=== PATIENT | female | born 1995 | race American Indian/Alaskan Native ===

== ENCOUNTER 2023-04-18 19:53 | Emergency (ER) | payer MEDICAID, OTHER ==
[~2023-04-18] VITALS: Ht 172.7 cm; Wt 153.0 kg
[2023-04-18 20:19] VITALS: BP 157/85; O2SAT 94
[2023-04-18] MEDS ORDERED: ONDANSETRON 4MG ODT PO ONE (21:00)
[2023-04-18 21:12] VITALS: PULSE 96; RESP 18; TEMP 99.1
== END 2023-04-18 21:13 | disposition home or self-care (01) ==
LOC: ER 20:06
DX: B34.9 Viral infection, unspecified (principal); F12.90 Cannabis use, unspecified, uncomplicated; R05.9 Cough, unspecified; R09.81 Nasal congestion; Z20.822 Contact with and (suspected) exposure to COVID-19
CPT/HCPCS: 99283; 87426; Q0162; C9803

== ENCOUNTER 2023-06-02 14:48 | Emergency (ER) | payer SELFPAY ==
[~2023-06-02] VITALS: Ht 167.6 cm; Wt 152.0 kg
[2023-06-02 15:31] VITALS: O2SAT 96
[2023-06-02] MEDS ORDERED: IBUPROFEN 400MG TABLET PO ONE (21:30)
[2023-06-03 00:45] VITALS: BP 156/92; PULSE 80; RESP 20; TEMP 97.8
== END 2023-06-03 00:45 | disposition home or self-care (01) ==
LOC: ER 14:48
DX: S62.606A Fracture of unspecified phalanx of right little finger, initial encounter for closed fracture (principal); F12.10 Cannabis abuse, uncomplicated; X58.XXXA Exposure to other specified factors, initial encounter; Y93.89 Activity, other specified; Y92.89 Other specified places as the place of occurrence of the external cause; Y99.8 Other external cause status
CPT/HCPCS: 29130; 73090; 73120; 81025; 99284